=== PATIENT | female | born 1955 | race Caucasian/White ===

== ENCOUNTER → 2018-08-15 | Outpatient (CLI) | payer OTHER ==
[~2018-08-15] MED LIST: METOPROLOL 5 MG INJ
[2018-08-15] MEDS: SOD CHLORIDE 0.9% 100 ML (09:59)
[2018-08-15] MEDS: IOHEXOL 100 ML (10:00)
== END | disposition home or self-care (01) ==
LOC: C/S 08:09
DX: R94.39 Abnormal result of other cardiovascular function study (principal); R06.02 Shortness of breath
CPT/HCPCS: 75571; 75574